=== PATIENT | male | born 1955 | race Caucasian/White ===

== ENCOUNTER 2016-07-20 22:43 | Inpatient (IN) | payer SELFPAY ==
[~2016-07-20] VITALS: Ht 188 cm; Wt 85.9 kg
--- NOTE | ~2016-07-20 | HP ---
PATIENT'S NAME: SHAYLA BONILLA [facility] AGE: 60 Y [address] ROOM: [place] [address] LOCATION: GPCU ADMIT DATE: 07/20/2016 History & Physical DISCHARGE DATE: FAMILY PHYSICIAN: PHYSICIAN, UNKNOWN ATTENDING PHYSICIAN: HASEEB CROUCH V DATE OF SERVICE: CHIEF COMPLAINT: Chest pain. HISTORY OF PRESENT ILLNESS: The patient is a 60-year-old male who denies any past medical history. He was convinced by his family to go to the ER in [place] today after approximately 18- 20 hours of constant substernal chest pressure. At its worst, this was a 9/10. In the ER in [place], the patient was found to have ST-abnormalities on the EKG. His troponin was 38. His CPK was 2100. He was started on nitro drip as well as heparin. The patient was communicated with Dr. Mao of Cardiology and sent to [facility] for further cardiac workup. I am seeing the patient immediately upon his arrival to the floor. He reports that at this point his chest pain is 3/10 while he is on 20 mcg of nitroglycerin a minute. He endorses some vague dyspnea, but denies any overt shortness of breath, nausea, vomiting, diarrhea, or palpitations. REVIEW OF SYSTEMS: All 10 systems have been reviewed and are negative aside from pertinent positives as mentioned above. PAST MEDICAL HISTORY: The patient denies. SOCIAL HISTORY: The patient has been a pack-a-day smoker for approximately 30 years now. He endorses 46 beers a week of alcohol use. He is employed in construction. FAMILY HISTORY: Significant for colon cancer and diabetes in his mother and lung cancer in his father. CURRENT MEDICATIONS: Nexium. PHYSICAL EXAMINATION: VITAL SIGNS: At this point, his heart rate is in the 80s, blood pressure PATIENT'S NAME: SHAYLA BONILLA [facility] AGE: 60 Y [address] ROOM: [place] [address] LOCATION: GPCU ADMIT DATE: 07/20/2016 History & Physical DISCHARGE DATE: FAMILY PHYSICIAN: PHYSICIAN, UNKNOWN ATTENDING PHYSICIAN: HASEEB CROUCH V 123/70, satting 96% on 2 L nasal cannula as well as on room air, he is afebrile, and respirations are 16. GENERAL: Appears as a well-developed, well-nourished, middle-aged male, in no acute distress. NEUROLOGIC: Exam is nonfocal. EYES: Exam shows pupils are equal and reactive to light. LYMPHATIC: Exam shows no cervical lymphadenopathy. ENDOCRINE: Exam shows no thyromegaly. LUNGS: Display diminished breath sounds in all nicole. HEART: Regular rate and rhythm without appreciable murmurs, gallops, or rubs. There is no jugular venous distention or lower extremity edema. GI: Abdomen is soft, nontender. : No costovertebral angle tenderness. VASCULAR: A 2+ pedal pulses. SKIN: Warm and dry. MUSCULOSKELETAL: Unremarkable. PSYCHIATRIC: Appropriate mood, cognition, and affect. LABORATORY DATA: Review of the EKG from [facility] done immediately prior to my arrival reveals normal sinus rhythm at 74 beats per minute. There are Q-waves in leads V1 through V4. There is approximately 2-mm ST-elevation in lead V2, a 4-mm ST-elevation in lead V3, and a 2-mm elevation in lead V4. There are T- wave inversions in leads V5 and V6. Flat T-waves in other leads. No labs are available from [facility] as of yet. ASSESSMENT AND PLAN: This is a 60-year-old male with ST-elevation myocardial infarction. I discussed the case with Dr. Mao; and at this point, the plan is to take him to the [facility]. We will continue him on nitroglycerin drip. We will hold off on heparin preprocedure. We will start him on intravenous fluids for hydration and give him some Valium on-call to the [facility]. Additional management will depend on results of the catheterization. Time dedicated to this patient encounter is 35 minutes. MD JARON SIFUENTES/timo /[id number] D: T: HISTORY & PHYSICAL
--- NOTE | ~2016-07-20 | DS ---
PATIENT'S NAME: SHAYLA BONILLA [facility] AGE: 60 Y [address] ROOM: [id number] [place], [place] [address] LOCATION: GPCU ADMIT DATE: 07/20/2016 Discharge Summary DISCHARGE DATE: 07/27/2016 FAMILY PHYSICIAN: Severo Miller MD ATTENDING PHYSICIAN: Meir Brown V PRINCIPAL DIAGNOSES: 1. Coronary artery disease presented with ST-segment elevation myocardial infarction, status post triple-vessel CABG. 2. Tobaccoism. 3. Gastroesophageal reflux disease. 4. Osteoarthritis. HOSPITAL COURSE: A 60-year-old gentleman with no significant past medical history, was brought to the emergency department of [facility] with chest pressure. EKG was done, and he was found to have ST elevation myocardial infarction. He was taken to the catheterization lab, which revealed multivessel disease and cardiothoracic consultation was obtained for a referral for CABG. Echocardiography and a preoperative evaluation was done. He was found to have left ventricle ejection fraction of 40% with mildly dilated left ventricle. He underwent triple-vessel CABG using SINGH, SVG, as well as NAKUL. He was in the ICU for 24 hours after the surgery. He was on amiodarone and insulin drip, which were weaned off. He briefly had atrial fibrillation postoperatively. He progressed well during the course of the hospitalization and was discharged. FOLLOWUP: He follow up with Dr. Liao in 2 weeks. Follow up with Dr. Latif in 2 weeks. DISCHARGE MEDICATIONS: 1. [place] 5/325 one tablet p.o. q.4 hours. 2. Esomeprazole 40 mg p.o. daily. 3. Amiodarone 200 mg p.o. 3 times daily. 4. Aspirin 81 p.o. daily. 5. Lipitor 40 mg p.o. every night. 6. Coreg 3.125 mg p.o. twice daily. 7. Plavix 75 mg p.o. every day. 8. Docusate 100 mg p.o. twice daily. 9. Vasotec 2.5 mg p.o. every day. 10. Lasix 40 mg p.o. every morning, dispensed 14 tablets. 11. KCl 20 mEq for hypokalemia, dispensed 14 tablets. HEMODYNAMICS ON DISCHARGE: Stable. LABORATORY WORK ON DISCHARGE: Hemoglobin of 10, white count of 8.3, platelets PATIENT'S NAME: SHAYLA BONILLA [facility] AGE: 60 Y [address] ROOM: [place] [address] LOCATION: GPCU ADMIT DATE: 07/20/2016 Discharge Summary DISCHARGE DATE: 07/27/2016 FAMILY PHYSICIAN: Severo Miller MD ATTENDING PHYSICIAN: Meir Brown V of 301. BMP was unremarkable with a GFR greater than 60. MD NIKKI RAMON/timo /[id number] d: 07/28/16 0509 t: 07/29/16 1503, DISCHARGE SUMMARY
--- NOTE | ~2016-07-20 | ECHO ---
Transthoracic Echocardiography Report (TTE) Demographics Patient Name SHAYLA BONILLA Date of Study 07/21/2016 Patient Number [id number] Visit Number [id number] Date of 1955 Room Number G6304 Gender Male Number Age 60 year(s) Referring Stephanie Worley V [employer] Aleah Salgado Physician [facility] Eb Sharma Physician Interpreting Daylin Calles [employer] Paraprofessional Physician Supervising Ordering Stephanie Giordano MD/MLP Physician MD Nurse Stress National Recruiter Conclusions Summary Ischemic cardiomyopathy. THe mid to distal inferoseptum, anteroseptum and distal anterior and apical church are akinetic. Mildly reduced LV systolic function. The estimated left ventricular ejection fraction is 40%. The left ventricle is mildly dilated . Diastolic assessment reveals Grade I diastolic dysfunction. Mildly dilated right ventricle. The left atrium is mildly dilated. No significant valvular abnormalities. Procedure Type of Study TTE procedure:2D Echocardiogram, M-Mode, Doppler , Color Doppler. Procedure Date Date: 07/21/2016 Start: 07:18 AM Study Location: Inpatient Portable Technical Quality: Adequate visualization Indications:Chest pain. Appropriate Use Criteria: 9 Patient Status: Routine HR: 76 bpm BP: 105/58 mmHg Allergies - No known allergies. M-Mode/2D Measurements LV Diastolic Dimension: 5.95 cm LV Systolic Dimension: 4.62 cm LV Septum Diastolic: 0.99 cm LV PW Diastolic: 0.99 cm AO Root Dimension: 3.2 cm Cardiac Output: 3.94 l/min AV Cusp Separation: 2.1 cm RV Diastolic Dimension: 3.39 cm LA volume: 73 ml LVOT: 2 cm RV Base: 3.71 cm LVOT VTI: 16.5 cm RV Mid: 4.05 cm LV Stroke volume: 51.81 ml TAPSE: 2.04 cm TDI-S': 20.2 cm/s Doppler Measurements AV Peak Velocity: 1.13 m/s MV Peak E-Wave: 0.37 m/s AV Peak Gradient: 5.11 mmHg MV Peak A-Wave: 0.48 m/s AV Mean Gradient: 3 mmHg MV E/A Ratio: 0.78 LVOT Peak Velocity: 1 m/s MV P1/2t: 127 msec PV Peak Velocity: 1 m/s E' Septal Velocity: 0.05 m/s PV Peak Gradient: 4 mmHg E' Lateral Velocity: 0.04 m/s A' Septal Velocity: 0.07 m/s A' Lateral Velocity: 0.13 m/s Findings Left Ventricle The left ventricle is mildly dilated . Diastolic assessment reveals Grade I diastolic dysfunction. Right Ventricle Mildly dilated right ventricle. Normal right ventricular function. Left Atrium The left atrium is mildly dilated. Right Atrium Normal right atrial size. IVC measures 1.35 cm with inspiratory collapse. Mitral Valve Normal mitral valve structure and function. Trivial mitral regurgitation by color Doppler. Aortic Valve The aortic valve is mildly sclerotic. Tricuspid Valve Normal tricuspid valve structure and function. Trivial tricuspid regurgitation by color Doppler. Pulmonic Valve Normal pulmonic valve structure and function. Trivial pulmonic valve regurgitation by color Doppler. Pericardial Effusion No evidence of pericardial effusion. Miscellaneous Visualized portions of the aortic root and ascending aorta appear normal in size. Pleural Effusion No evidence of pleural effusion. Signature dtt: RAE HARRIS dtd: 07/21/16 0718 Physician Self Edit
--- NOTE | ~2016-07-20 | CON ---
PATIENT'S NAME: SHAYLA BONILLA [facility] AGE: 60 Y [address] ROOM: [place] [address] LOCATION: GPCU ADMIT DATE: 07/20/2016 Consultation DISCHARGE DATE: FAMILY PHYSICIAN: Severo Miller MD ATTENDING PHYSICIAN: HASEEB CROUCH V DATE OF CONSULTATION: 07/21/2016 REFERRING PHYSICIAN: RAE HARRIS MD REASON FOR CONSULTATION: Severe coronary artery disease, STEMI. HISTORY OF PRESENT ILLNESS: The patient is a 60-year-old white male, transferred here per ground for a delayed presentation of a STEMI. Apparently, the patient had been golfing the day prior and experienced significant substernal chest pain that became progressively worse until it was 10/10 pain associated with shortness of breath, nausea, and vomiting. He did ignore the symptoms and later proceeded to work. He did take some Tums for his indigestion-type symptoms. He progressed with more pain in the epigastric area and then eventually started having numbness and tingling in his fingers. His coworkers prompted him to present to the emergency room for which he did finally do. He did have elevated troponins. Positive EKG. Dr. Latif accepted the patient in transfer. He underwent an echocardiogram with an EF at 40% and no significant valvular abnormalities. He was taken urgently to the catheterization lab due to continued chest pain and findings were for 50% left main with a thrombotic lesion, [id number] LAD at 100% with collaterals left and right to left. 80% second obtuse marginal at the proximal portion and a proximal RCA at 70. Also, a distal circumflex with 50% stenosis. Dr. Myers was asked to see the patient in consultation for surgical revascularization. The patient was transferred back up to the progressive care floor following the procedure on a heparin and nitroglycerin drip. Since that time, the patient's chest pain has subsided except for approximately 9 o'clock he developed a short burst of chest pain. The nitroglycerin was titrated and the pain resolved. PAST MEDICAL HISTORY: Illnesses: Osteoarthritis. SURGERIES: None. ALLERGIES: NO KNOWN DRUG ALLERGIES. SOCIAL HISTORY: [facility] AGE: 60 Y [address] 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 He is . He has grown children. He does consume alcohol on a daily basis, perhaps quite a bit and does smoke at least 1 pack of cigarettes per day. FAMILY HISTORY: Significant for his father having heart disease as well as his brothers. His mother had history with colon cancer. MEDICATIONS: 1. Heparin drip per protocol. 2. Nitroglycerin per protocol. 3. Coreg 3.125 mg b.i.d. 4. Lipitor 40 mg at h.s. 5. Enteric coated aspirin 81 mg. SYSTEM REVIEW: The patient's pertinent positives are listed as per HPI. Otherwise, his 10- point review of systems were negative. PHYSICAL EXAMINATION: VITAL SIGNS: Blood pressure 105/58, pulse is 98, respirations 15, temperature 98.2, O2 saturation is 97%, weight is 85.2 kg, height is 187.9 cm. GENERAL: The patient is very pleasant. He is in no acute distress at this time. His family is in the room to hear the details of coronary artery bypass grafting. HEENT: Normocephalic with EOMIs intact. NECK: Trachea midline with no palpable lymphadenopathy or thyromegaly. CARDIOVASCULAR: Regular rate and rhythm. Tachy at times. ABDOMEN: Soft, nontender by 4 quadrants. Positive bowel sounds throughout. EXTREMITIES: No overt varicosities or edema. MUSCULOSKELETAL: Good range of motion to bilateral upper and lower extremities. NEUROLOGIC: Alert and oriented. SKIN: [place]. LAB AND TEST RESULTS: CBC: WBC is 8.1, hemoglobin 12.5, platelets 203. BMP: Sodium 141, potassium 3.8, BUN 16, creatinine 1.0. Lipid profile shows cholesterol of 157, triglycerides 118, HDL 52, LDL 82. Latest CPK is 1506, CK-MB is 113.8, and troponin I is 42.7. RECOMMENDATIONS AND PLAN: Dr. Myers did review the cardiac catheterization studies. At this time, we will plan for pass consisting of 3 vessels. Risks and benefits of the procedure were discussed. Discussion of the risks include, but were not PATIENT'S NAME: SHAYLA BONILLA [facility] AGE: 60 Y [address] ROOM: [facility] [place], [place] [address] [facility] AD[facility] DATE: 07/20/2016 Consultation DISCHARGE DATE: FAMILY PHYSICIAN: Severo Miller MD ATTENDING PHYSICIAN: HASEEB CROUCH V limited to, bleeding requiring transfusion, return to the operative suite, myocardial infarction, cerebrovascular accident, renal and/or pulmonary failure. Also discussed were arrhythmias and infection as well as operative and postoperative mortality. The patient does consent to the procedure. We will plan for first case on July 22, sooner if conditions warrant. We would like to thank Dr. Harris for allowing us to participate in the care of this very pleasant gentleman. FRIDA LENZ APRN FOR SHAYLA MYERS, DLQ/modl /[id number] d: 07/23/16 0159 t: 08/02/16 0803, CONSULTATION REPORT
--- NOTE | ~2016-07-20 | ENPV ---
Vascular Lower Extremity Vein Mapping Procedure Demographics Patient Name SHAYLA BONILLA Date of Study 07/21/2016 Patient Number [id number] Gender Male Date of 1955 Age 60 Visit Number [id number] Height 72 Accession Number [id number] Weight 188.28 Referring Daylin Gary MD Physician Physician Physician Ordering Daylin Scheduling Representative Physician Marli POP Vat Cleaner [place] Gray [facility] Eb Sharma Conclusions Summary No evidence of superficial thrombophlebitis in the lower extremities bilaterally . There is a branch off the left greater saphenous vein in the proximal calf. The right greater saphenous vein appears more suitable for harvest. Procedure Type of Study: Veins:Lower Extremity Vein Mapping, Vein Map Bilat DUTCH. Indications for Study:Pre-op CABG. Appropriate Use Criteria:8 Allergies - No known allergies. Patient Status:Routine. Study Location:Inpatient Portable. Technical Quality:Adequate visualization. Risk Factors - The patient has a current/recent (within 1 year) tobacco history. Velocities are measured in cm/s ; Diameters are measured in cm + ++--------++--------+ !Superficial - Great Saphenous Vein !!Right !!Left ! + ++--------++--------+ !Location !!Diameter!!Diameter! + ++--------++--------+ !Sapheno Femoral Junction !!0.45 !!0.46 ! + ++--------++--------+ !GSV High Thigh !!0.41 !!0.47 ! + ++--------++--------+ !GSV Mid Thigh !!0.33 !!0.26 ! + ++--------++--------+ !GSV Low Thigh !!0.37 !!0.45 ! + ++--------++--------+ !GSV Knee !!0.43 !!0.32 ! + ++--------++--------+ !GSV High Calf !!0.34 !!0.23 ! + ++--------++--------+ !GSV Mid Calf !!0.34 !!0.21 ! + ++--------++--------+ !GSV Low Calf !!0.37 !!0.25 ! + ++--------++--------+ Signature dtt: DELROY MCBRIDE dtsabina: 07/21/16 0808 Physician Self Edpranav
--- NOTE | ~2016-07-20 | OR ---
PATIENT'S NAME: PATRICE SINGLETON [facility] AGE: 60 Y [address] ROOM: [place] [address] [facility] AD[facility] DATE: 07/20/2016 OR/Procedure Report DISCHARGE DATE: 07/27/2016 FAMILY PHYSICIAN: Severo Miller MD ATTENDING PHYSICIAN: Meir Brown V SURGEON: Patrice Liao DO PROPOSAL CONSULTANT: DATE OF PROCEDURE: 07/22/2016 PREOPERATIVE DIAGNOSES: 1. ST-segment myocardial infarction, status post code ST-elevation myocardial infarction cath. 2. Multivessel coronary artery disease. 3. Depressed ejection fraction of 40%. 4. Chronic tobacco abuse. POSTOPERATIVE DIAGNOSES: 1. ST-segment myocardial infarction, status post code ST-elevation myocardial infarction cath. 2. Multivessel coronary artery disease. 3. Depressed ejection fraction of 40%. 4. Chronic tobacco abuse. PROCEDURE PERFORMED: Coronary artery bypass grafting x3 with left internal mammary artery to the left anterior descending, reverse saphenous vein graft to the obtuse marginal, and right internal mammary artery to the right coronary artery. BRIEF HISTORY: Mr. Singleton is a 60-year-old white male with the above-noted diagnoses. DESCRIPTION OF PROCEDURE: He has been brought to the operative suite today after informed consent was obtained for his revascularization. He was sterilely prepped and draped in the usual fashion for sternotomy with lower extremity vein harvest. A sternal incision was made, and the sternum was divided in the midline. Concurrently, the saphenous vein was harvested endoscopically. We turned our attention to the left internal mammary. A mammary retractor had been placed. The mammary artery was identified and then harvested utilizing the Harmonic Scalpel. We left it intact, switched our mammary retractor to the right jocy-sternum, and identified the right internal mammary artery. Again, it was identified and then harvested utilizing the Harmonic Scalpel. The patient was now fully heparinized. The right internal mammary artery was divided and prepared for bypass. The internal mammary retractor was removed. The left jocy-sternum was retracted, and the left internal mammary artery was divided. The sternal retractor was now placed, PATIENT'S NAME: PATRICE SINGLETON [facility] AGE: 60 Y [address] ROOM: [place] [address] LOCATION: GPCU ADMIT DATE: 07/20/2016 OR/Procedure Report DISCHARGE DATE: 07/27/2016 FAMILY PHYSICIAN: Severo Miller MD ATTENDING PHYSICIAN: Meir Brown V the pericardium was opened, and a pericardial well was created. Cannulation sutures now placed in the ascending aorta and right atrium for bypass and cardioplegia cannulas. The patient was now cannulated and connected to the bypass pump without difficulty. The vein was then prepared for bypass. Cardiopulmonary bypass was initiated, and a crossclamp was applied. Antegrade and retrograde cardioplegia was given along with topical cold saline for cardiac arrest, and the heart arrested without difficulty. We identified the right coronary artery approximately 1 cm above the bifurcation into the posterolateral and posterior descending branches and anastomosed our right internal mammary artery to this in an end-to-side fashion utilizing 7-0 Prolene. With this completed, the bulldog was removed from the internal mammary, showing good distal flow into the distal system and an intact anastomosis. The bulldog was now replaced, and a dose of cardioplegia was given. The obtuse marginal was now identified and a vein graft anastomosed to it in an end-to-side fashion with 7-0 Prolene. Another 500 mL of vein graft and retrograde cardioplegia was given, and then the left internal mammary was anastomosed to the mid LAD again in an end-to-side fashion with 7-0 Prolene. We now removed the bulldogs from each of the internal mammaries and removed the crossclamp. Partial occlusion clamp was applied. The vein graft was anastomosed to the ascending aorta with 4-0 punch and 6-0 Prolene. During this time period, warm blood was given in a retrograde fashion. We now removed the partial occlusion clamp, de-aired the vein, and removed the bulldog. Distal sites were hemostatic. Proximal site was hemostatic. Warm blood was now discontinued. The retrograde cannula was removed. Ventilations were initiated, and 2 atrial and 1 ventricular temporary pacemaking wires were placed. We weaned from cardiopulmonary bypass without difficulty and removed the venous cannula. Appropriate volume was returned to the patient, and ascending aortic cannula was removed. Protamine was now given. Copious amounts of antibiotic-infused saline was used to irrigate the sternum and mediastinum. Four chest tubes were placed; one in each pleural space, one in the posterior pericardial space, and one in the anterior mediastinal space. Sternum was now approximated with sternal cable system. All sponge, instrument, and needle counts were correct. Soft tissues were closed in a layered fashion, and the patient was transferred to the intensive care unit in stable condition. DO FABIANA BATISTA/timo /[id number] d: 08/02/16 1855 t: 08/03/16 0743, OPERATIVE SUMMARY
--- NOTE | ~2016-07-20 | CON ---
PATIENT'S NAME: SHAYLA SINGLETON [facility] AGE: 60 Y [address] ROOM: [address]6304 [place], [place] [address] LOCATION: GPCU ADMIT DATE: 07/20/2016 Consultation DISCHARGE DATE: FAMILY PHYSICIAN: PHYSICIAN, UNKNOWN ATTENDING PHYSICIAN: HASEEB CROUCH V DATE OF CONSULTATION: 07/21/2016 REFERRING PHYSICIAN: RAE HARRIS MD REASON FOR CONSULTATION: Chest pain with anterior infarct. HISTORY OF PRESENTING ILLNESS: The patient is a very pleasant, 60-year-old male, who has prior history of osteoarthritis and acid reflux. He is on omeprazole and NSAIDs for pain management at home. He does not have any prior cardiac history. No history of CABG, stent, or valve replacement. He does not have medical insurance and really does not follow with a doctor for that reason. He smokes about 1 pack per day for the past 30 years. He started complaining of chest pain yesterday while he was playing golf at about 8:30. He said at the most intense it was 10/10 on pain scale. He thought it was just his acid reflux. He really did not do much about it. It was persistent. It was quite severe and persisted all night. This morning, he went to work, but he was not feeling well. At 12:45 p.m. today, he came home. He continued to have the chest pain that was bothering him; did not do much about it. He started having nausea, vomiting, and shortness of breath and finally decided to go to the emergency room in [place]. When he went there, his initial cardiac enzymes were quite elevated. His CPK was 2000, CK-MB 269, troponin of 35, with Q-waves in the anterior leads. He continued to have chest pain about 2 to 3 on pain scale, and he was finally transferred to our facility. I asked them to give him aspirin, Lipitor, nitroglycerin drip and heparin drip, and morphine in transfer en route. The plan was to cath him urgently if he has continued chest pain, or to optimize medications and cath him in the morning if he is symptom-free without any arrhythmias and hemodynamically stable. Upon arrival, the patient still has chest pain about 4 on pain scale. It radiates to his back. He seems to be in mild distress from that. He has not had any symptoms like this before. He is a lemus and quite active. No fever, chills, stroke-like symptoms, palpitations, presyncope, syncope, CHF symptoms of PND or orthopnea, or lower extremity edema. REVIEW OF SYSTEMS: Ten-point review of systems discussed with the patient, pertinent positives and negatives mentioned in the history of presenting illness. PATIENT'S NAME: SHAYLA SINGLETON [facility] AGE: 60 Y [address] ROOM: [address] [place], [place] [address] LOCATION: GPCU ADMIT DATE: 07/20/2016 Consultation DISCHARGE DATE: FAMILY PHYSICIAN: PHYSICIAN, UNKNOWN ATTENDING PHYSICIAN: HASEEB CROUCH V PAST MEDICAL HISTORY: Acid reflux and osteoarthritis. PAST SURGICAL HISTORY: Knee surgery bilaterally. FAMILY HISTORY: No premature coronary artery disease. Several uncles with MIs in their 60s. SOCIAL HISTORY: The patient smokes 1 pack per day for 30 days. He is a lemus and quite active. He drinks about 2 beers twice a week. ALLERGIES: NO KNOWN DRUG ALLERGIES. MEDICATIONS: 1. Omeprazole 40 mg daily. 2. Ibuprofen 800 mg every morning. PHYSICAL EXAMINATION: VITAL SIGNS: His blood pressure is 118/69, 97.9, oxygen saturations 98% on 2 L, and pulse is 68. Weight is 85 kg. GENERAL: The patient is alert and oriented. Mild distress. NECK: Supple. EYES: Clear. No xanthelasmas. LUNGS: Clear to auscultation bilaterally. HEART: S1, S2. Regular rate and rhythm. No murmurs, gallops, or rubs. CHEST: Symmetric. ABDOMEN: Soft. Bowel sounds positive. EXTREMITIES: No significant lower extremity edema. Radial pulse is palpable. NEURO: Grossly intact. Able to move all extremities against gravity. SKIN: Warm and dry. LABORATORY DATA: His labs basically show sodium is 138, potassium 3.9, glucose 127, BUN 17, creatinine 1.1, AST 296, ALT 67, alkaline phosphatase 75. WBC 10.8, H and H of 13.9 and 40.8, and platelets are 253. CPK at the outside hospital was 2135 and here it is 1951. Troponin was 35 and here it is 52. CK-MB was 161 here and it was 269 at the outside facility. INR is 0.95. EKG: Sinus rhythm with possible inferior infarct and anterior ST elevation with Q-waves, T-wave inversions in the anterolateral leads. IMPRESSION AND PLAN: 1. Anterior ST-elevation myocardial infarction, late presentation, symptom PATIENT'S NAME: SHAYLA SINGLETON [facility] AGE: 60 Y [address] ROOM: [place] [address] LOCATION: GPCU ADMIT DATE: 07/20/2016 Consultation DISCHARGE DATE: FAMILY PHYSICIAN: PHYSICIAN, UNKNOWN ATTENDING PHYSICIAN: HASEEB CROUCH V onset about 30 hours ago. He continues to have chest pain and his cardiac enzymes are significantly elevated. He is on 20 mcg of nitroglycerin drip. At this point, I think we need to proceed with cardiac catheterization and possible intervention given that he continues to have persistent chest pain. He is hemodynamically stable. 2. Tobacco abuse. Counseled against tobacco use. 3. Acid reflux. Continue omeprazole. Further plan after cardiac catheterization is done. Risks and benefits of cardiac catheterization discussed with the patient and family and they are agreeable to proceed with the plan. Risks include risk of bleeding, bruising, infection 1 in 100 cases, risk of heart attack, , MD, stroke, losing a limb, ending up on dialysis, contrast allergy of less than 1 in a 1000 cases. At this time, benefits are greater than the risks. Thank you very much for allowing us to participate in the care of Mr. Singleton. We will continue to follow the patient. RAE HARRIS MD AT/modl /[id number] d: 07/21/16 0531 t: 07/22/16 1407, CONSULTATION REPORT
--- NOTE | ~2016-07-20 | CATH ---
Cardiac Diagnostic Report Demographics Patient Name IRENE Jefferson Gender Male Date of 1955 Age 60 year(s) Patient Number [id number] Date of Study 07/21/2016 Visit Number [id number] Room Number G6[address] [place] [id number] Ht 182.88 cm Wt 85.4 kg Referring Stephanie Worley Primary Physician Physician Giuliana POP Performing [place] Secondary Physician Physician Marli POP Diagnostic [facility] Assisting Physician Physician Marli POP Interventional Physician Pyrotechnic Mixer Physician Findings and Conclusions Diagnostic Findings and Conclusion Patient presented with STEMI, late presentation, > 24 hours of symptom onset, brought urgently to lab intern, due to persistent chest pain and worsening ecg changes with deep TWI in the anterolateral leads. 1. Multivessel CAD. 2. LM mid to distal 50% thrombotic lesion, appears to be an ulcerated plaque. 3. Mid to distal LAD 100% lesion with collaterals from left and right to left collaterals. 4. Large OM2 with 80% tubular lesion in the proximal portion. 5. Prox RCA 70% focal lesion, large dominant vessel. Diagnostic Recommendations Refer for CABG. Echo, carotids, vein mapping and PFT's in am. Continue medical treatment. Patient was CP free at the end of the procedure. Procedure Description The patient was brought to the diagnostic cardiac catheterization-EP laboratory in the fasting, non-sedated state. Informed consent was obtained in the written and verbal form after the risks and benefits were explained. The patient had no further questions and agreed to proceed. The planned puncture-incision site(s) were shaved and prepped with ChloraPrep and draped in the usual sterile manner. Conscious sedation, supplemental oxygen, and pain control medications were delivered by a registered nurse under physician guidance. Surface ECG rhythm, blood pressure measurement, and pulse oximetry were monitored throughout the procedure. Arterial access. The access site was infiltrated with lidocaine. The vessel was entered with the Seldinger technique. A sheath was advanced into the vessel and used for catheter placement. Selective left coronary angiography. A catheter was advanced into the left coronary vessel ostium under Fluoroscopic guidance. Contrast was injected by hand. Images were obtained in multiple projections. Selective right coronary angiography. A catheter was advanced into the right coronary vessel ostium under fluoroscopic guidance. Contrast was injected by hand. Images were obtained in multiple projections. Left heart catheterization. A catheter was advanced across the aortic valve to the left ventricle under fluoroscopic guidance. Resting hemodynamics were obtained. Arterial artery hemostasis was achieved. The patient was transferred to a regular nursing floor via cart accompanied by a nurse. The patient left the laboratory in stable condition. Diagnostic Cath Status: Emergency Procedure Procedure Type Diagnostic procedure:Angiography:, Coronary Angios /[facility] Indications: Chest pain, Abnormal ECG and Abnormal enzymes. The procedure was explained in detail to the patient. Risks, complications and alternative treatments were reviewed. Written consent was obtained. Medications Reviewed with Patient prior to Procedure. Angiographic Findings Dominance: Right Cardiac Arteries and Lesion Findings LMCA: Lesion on LMCA: Mid subsection.50% stenosis . Comments:Thrombotic lesion LAD: Lesion on Dist LAD: 100% stenosis . Comments:Left and right collaterals. Lesion on Prox LAD: 30% stenosis . LCx: Lesion on Dist CX: 50% stenosis . Lesion on 1st Ob Lisy% stenosis . RCA: PL and PDA normal. Lesion on Prox RCA: 70% stenosis . Coronary Tree Procedure Data Procedure Date Date: 07/21/2016Start: 12:52 AMEnd: 01:19 AM Entry Locations - Retrograde Percutaneous access was performed through the Right Radial artery (Primary location). A 6 Fr sheath was inserted. Hemostasis was successfully obtained using Mechanical Compression. Closure Comments: R band with 14 cc air deployed by ALMITA Mcleod.. Procedure Medications Order and Administration + + +-------+ + !Time !Medication !Dosage !Route ! + + +-------+ + !07/21/2016 12:55 AM !Versed !1 mg !I.V. ! + + +-------+ + !07/21/2016 12:55 AM !Fentanyl !50 mcg !I.V. ! + + +-------+ + !07/21/2016 12:56 AM !Radial Verapamil !2.5 mg !I.A. ! + + +-------+ + !07/21/2016 01:10 AM !Angiomax (Bivalirudin) (ACC_5) !65 mg !I.V. bolus ! + + +-------+ + Devices Used - A6 Fr. BS JR 4 Diag. Catheterwas used for:Right coronary angiography. - A6 Fr. EBU 3.5 Guide Catheterwas used for:Left coronary angiography. Contrast Material - Isovue 34784 ml Fluoroscopy Time: Diagnostic: 4:24 minutes. Total: 4:24 minutes. Fluoroscopy Dose: Diagnostic: 723 mGy. Total: 723 mGy. Estimated Blood Loss: 10 ml. Additional [facility] PCI Information PCI Indication:PCI for STEMI (Unstable, >12 hrs from Sx onset). Medical History Performed Procedures and Imaging Results - No [facility] stress or imaging studies were performed. Allergies - No known allergies. Risk Factors The patient risk factors include:family history of premature CAD and Current/Recent(w/in 1 year) tobacco use. Admission Data Admission Date: 07/20/2016 Admission Time: 10:43 PM Admit Source: Emergency department Insurance Payors: None. Admission Medications + +------+-----+---------+---------+ + + !Medication !Dosage!Times!Last !Last !Administered !Comments ! ! ! !Per !Delivery !Delivery ! ! ! ! ! !Day !Date !Time ! ! ! + +------+-----+---------+---------+ + + !Unfractionated ! ! ! ! !Yes ! ! !Heparin (any) ! ! ! ! ! ! ! + +------+-----+---------+---------+ + + !Nitrates (iv or! ! ! ! !Yes ! ! !buccal) ! ! ! ! ! ! ! + +------+-----+---------+---------+ + + Clinical Evaluation Leading to Procedure - The patient's CAD presentation was assessed as: STEMI.The symptom onset was first noted on 07/19/2016 07:30 PM(time was estimated). - The patient's anginal syndrome during the past two weeks was assessed as: Class IV according to the [place] Cardiovascular Society Classification System (CCS). Snapshots Hemodynamics Condition: Rest O2 Consumption: Estimated: 242.18Heart Rate: 66 bpm Pressures (mmHg) +-----+ + !Site !Pressure ! +-----+ + !LV !116/2 ,8 ! +-----+ + !LV !118/1 ,9 ! +-----+ + !AO !115/62 (83) ! +-----+ + !LV !117/1 ,9 ! +-----+ + !AO !108/62 (82) ! +-----+ + !AO !102/64 (79) ! +-----+ + Valve Gradients and Areas + +---------+---------+---------+ +---------+ + !Valve !Peak !Mean !Area !Index !Flow !Source ! + +---------+---------+---------+ +---------+ + !Aortic !2 !0 ! ! ! ! ! + +---------+---------+---------+ +---------+ + !Aortic !2 !0 ! ! ! ! ! + +---------+---------+---------+ +---------+ + Shunts Oxygen Values O2 Capacity 189.04 O2 Consumption 242.18 Signatures dtt: MARLI HARRIS dtd: 07/21/16 0052 Physician Self Edit
--- NOTE | ~2016-07-20 | PUL ---
PATIENT'S NAME: SHAYLA BONILLA [facility] AGE: 60 Y [address] ROOM: [address] [place], [place] [address] [facility] ADMIT DATE: 07/20/2016 Pulmonary DISCHARGE DATE: FAMILY PHYSICIAN: Severo Miller MD ATTENDING PHYSICIAN: HASEEB CROUCH V NAME OF PROCEDURE: Bedside Spirometry DATE OF PROCEDURE: July 21, 2016 TECH: Lucia, WINDOW TRIMMER APPRENTICE REASON FOR EXAM: Pre-surgical evaluation RESULTS: FVC was 3.53 liters which is 64% of predicted and low, FEV1 was 2.41 liters which is 57% of predicted and low, and FEV1/FVC was 68% and normal for patient's demographics. After bronchodilator administration FVC increased to 3.66 liters which is a 4% increase and FEV1 increased to 2.57 liters which is a 7% increase. FEV1/FVC was 78.2%. PHYSICIAN INTERPRETATION: The patient has no airflow limitation as per ATS/ERS criteria and no significant bronchodilator response. There is suggestion of restrictive lung disease but lung volumes are needed to confirm that. LETITIA LOPEZ MD RFSam/benito /[id number] dtt: 07/26/16 1617 , LETITIA LOPEZ dtd: 07/26/16 1522
[2016-07-20] MEDS ORDERED: IBUPROFEN800 MG PO (22:55)
[2016-07-20] MEDS ORDERED: NEXIUM40 MG PO (22:55)
--- NOTE | 2016-07-21 00:04 | NUR ---
Patient arrived to PCU from [facility] at 2245 for chest pain. Patient is chest pain free at this time. Able to walk from stretcher to bed with standby assistance. Vital signs: 97.9 temp, 118/69 - 87, HR 69 bpm, 98% on 2L NC, 16 resp. Patients lungs are clear. SR with PVCs. Nitro at 20mcg/min. Dr. Latif plans to cath patient in AM. Patient is A/Ox3. Assessment is negative outside of cardiac. IV to R) hand and L) forearm.
[2016-07-21 04:11] LABS: BASOPHIL % 0.5 %; EOSINOPHIL # 0.3 K/uL (0.0-0.5); EOSINOPHIL % 3.6 %; HEMATOCRIT 37.8 % (37.0-53.0); HEMOGLOBIN 12.5 g/dL (12.0-17.0); IMMATURE GRANULOCYTE % 0.4 %; LYMPHOCYTE # 1.4 K/uL (0.8-4.0); MCH 30.4 pg (27.0-34.0); MCHC 33.1 gm/dL (32.0-36.5); MONOCYTE # 0.8 K/uL (0.0-1.0); MONOCYTE % 10.2 %; MPV 9.4 fl (9.4-12.4); NEUTROPHIL # (ANC) 5.6 K/uL (1.4-9.0); NEUTROPHIL % 68.3 %; NRBC % 0 /100WBC (0-0.00); PLATELET COUNT 203 K/uL (150-450); RBC 4.11 M/uL (4.00-6.00); RDW-CV 13.7 % (11.9-14.6); WBC 8.1 K/uL (4.0-11.0)
[2016-07-21 04:41] LABS: ANION GAP 11.8 (10.0-19.0); BLOOD UREA NITROGEN 16 mg/dL (6-24); CALCIUM 8.4 mg/dL (8.5-10.5); CHLORIDE 107 mMol/L (96-110); CO2 26 mMol/L (22-32); ESTIMATED GFR (MDRD EQUATION) > 60; POTASSIUM 3.8 mMol/L (3.7-5.1); SODIUM 141 mMol/L (135-145)
[2016-07-21 04:56] LABS: CPK 1506 IU/L (35-332)
--- NOTE | 2016-07-21 11:21 | NUR ---
Introduced self and CM role to Patrice. He tells me he lives in [place] with his S/O, Aarti, his plan is to return home as soon as doctors feel he is ready to do so. Patrice was listed as self pay on my sheet. I did confirm that he was a true self pay and that he didn't have any insurance coverage. I let him know about the financial assistance application that he could fill out once he dismissed to help cover his costs here at [facility]. He was fine with this. I asked if he had any issues paying for his medications prior to coming in. He tells me that he was only taking 2 medications at home so he wasn't having any issues covering the costs of them. He denies any needs for HHC/DME upon dismissal. No other questions, needs or concerns. CM to continue to follow and assist. After nursing huddle, I was informed that he did get a CABG consult and will most likely have that done tomorrow if the schedule permits.
[2016-07-21 15:15] LABS: BICARBONATE 26.9 mmol/L (18.0-23.0); PCO2 37 mmHg (35-45); PO2 76 mmHg (80-90)
--- NOTE | 2016-07-21 17:47 | NUR ---
Pt A/Ox3. VSS on RA. Pt complained of chest pain 3/10 at 0910, nitro increased and pt reported no pain at 0945. Tylenol given x1 for headache at 0850 with relief noted. No additional complaints of pain throughout the day. Pt to stay in bed, but can get up to chair or bedside commode. Pt voids per urinal, no BM. Pt NPO after midnight. Nitro at 15 mcg/min, heparin running at 1400 units/ hr in L FA IV. R hand IV SL. Next PTT HP at 2225.
[2016-07-21 18:00] LABS: BILIRUBIN URINE NEGATIVE (NEGATIVE); BLOOD URINE NEGATIVE /UL (NEGATIVE); GLUCOSE URINE NEGATIVE (NEGATIVE); KETONE URINE NEGATIVE (NEGATIVE); LEUKOCYTES URINE NEGATIVE /UL (NEGATIVE); NITRITE URINE NEGATIVE (NEGATIVE); PROTEIN URINE NEGATIVE (NEGATIVE); UROBILINOGEN URINE NORMAL (NORMAL)
[2016-07-21 18:01] LABS: COLOR URINE YELLOW (YELLOW); TURBIDITY URINE CLEAR (CLEAR)
--- NOTE | 2016-07-22 04:08 | NUR ---
Significant Event: Patient A/Ox3. VSS on RA. Patient received CABG shower and wipes at HS, will do second round of wipes at 0430. Tylenol x1 for headache. Patient is up SBA but with limited activity per Dr. Latif's orders. MRSA results negative. UA WNL. Patient has had no chest pain this shift. Nitro gtt running at 15mcg. Heparin d/c'd at 0400. Bicarb at 50ml/hr started at 0000. Risks and benefits completed, permits signed. Follow up: Patient is first case CABG this AM.
[2016-07-22 04:31] LABS: ANION GAP 9.7 (10.0-19.0); BLOOD UREA NITROGEN 14 mg/dL (6-24); CALCIUM 8.4 mg/dL (8.5-10.5); CHLORIDE 110 mMol/L (96-110); CO2 24 mMol/L (22-32); CREATININE 0.9 mg/dL (0.6-1.3); ESTIMATED GFR (MDRD EQUATION) > 60; PHOSPHORUS 2.6 mg/dL (2.5-4.9); POTASSIUM 3.7 mMol/L (3.7-5.1); SODIUM 140 mMol/L (135-145)
[2016-07-22 11:21] LABS: MCH 31.2 pg (27.0-34.0); MCHC 32.8 gm/dL (32.0-36.5); MCV 95.2 fl (83.0-98.0); MPV 9.3 fl (9.4-12.4); PLATELET COUNT 171 K/uL (150-450); RBC 3.11 M/uL (4.00-6.00)
[2016-07-22 11:29] LABS: PROTIME 11.6 SECONDS (9.8-11.4)
[2016-07-22 11:35] LABS: HEMATOCRIT 29.6 % (37.0-53.0); HEMOGLOBIN 9.7 g/dL (12.0-17.0); WBC 19.7 K/uL (4.0-11.0)
[2016-07-22 11:36] LABS: PTT 25 SECONDS (25-32)
[2016-07-22 12:21] LABS: PCO2 50 mmHg (35-45); PO2 135 mmHg (80-90)
[2016-07-22 12:34] LABS: ANION GAP 9.1 (10.0-19.0); BLOOD UREA NITROGEN 12 mg/dL (6-24); CHLORIDE 111 mMol/L (96-110); CO2 25 mMol/L (22-32); CREATININE 0.9 mg/dL (0.6-1.3); ESTIMATED GFR (MDRD EQUATION) > 60; POTASSIUM 4.1 mMol/L (3.7-5.1); SODIUM 141 mMol/L (135-145)
--- NOTE | 2016-07-22 13:25 | NUR ---
CONSULT RECEIVED S/P CABG. WILL PROVIDE DIET ED APPROPRIATE PRIOR TO DC.
[2016-07-22 13:40] LABS: ALPHA ANGLE 77 degrees; ALPHA ANGLE 78 degrees (70-81); CLOT FORMATION TIME 65 seconds; CLOTTING TIME 161 seconds; MAXIMUM CLOT FIRMNESS 64 mm; MAXIMUM LYSIS 5 %
[2016-07-22 13:41] LABS: CLOTTING TIME 62 seconds (43-82); MAXIMUM CLOT FIRMNESS 57 mm (51-72)
[2016-07-22 13:48] LABS: PCO2 49 mmHg (35-45); PO2 349 mmHg (80-90)
[2016-07-22 13:49] LABS: POTASSIUM 3.8 mEq/L (3.7-5.1); SODIUM 139 mEq/L (135-145)
[2016-07-22 13:50] LABS: BICARBONATE 27.8 mmol/L (18.0-23.0); PCO2 47 mmHg (35-45); PO2 255 mmHg (80-90); POTASSIUM 4.9 mEq/L (3.7-5.1); SODIUM 138 mEq/L (135-145)
[2016-07-22 13:51] LABS: BICARBONATE 25.8 mmol/L (18.0-23.0); PCO2 56 mmHg (35-45); PO2 229 mmHg (80-90)
[2016-07-22 13:52] LABS: BICARBONATE 26.7 mmol/L (18.0-23.0); PCO2 53 mmHg (35-45); PO2 265 mmHg (80-90)
[2016-07-22 13:52] LABS: POTASSIUM 4.5 mEq/L (3.7-5.1); SODIUM 138 mEq/L (135-145)
[2016-07-22 13:53] LABS: POTASSIUM 4.1 mEq/L (3.7-5.1); SODIUM 140 mEq/L (135-145)
--- NOTE | 2016-07-22 17:21 | NUR ---
D: CABG I: ALB/EZPAP R: PT WAS EXTUBATED @ 12:50 TO A 4 LPM NC, PT IS CURRENTLY ON 6 LPM NC, PT IS HAVING TROUBLE IN DEALING WITH PAIN, RAN EZPAP TX @ 8 LPM TO GET 10 CWP, PT COULD ONLY GET 10 CWP WITH THAT LITER FLOW, PT WAS ABLE TO GET 500-750 ON IS, BS CLEAR IN UPPER LOBES & C&D IN BASES, NO OTHER SIGNIFICANT CHANGES T/O DAY P: CONT.8
--- NOTE | 2016-07-22 17:40 | NUR ---
Significant Event:ADMITTED TO ICU POST 3 VESSELL CABG AT 1147, ARRIVED ON DOPAMINE, BICARB, LEVOPHED, CARRIER, AMIODARONE. EXTUBATED AT 1245. PAIN ISSUE'S. GAVE 4 MG MORPHINE WITH NO RELIEF OF PAIN. CALL TO DR. MYERS AND ADDED A 1 TIME DOSE OF TORADOL AND DILAUDID RETAIL FIELD SUPERVISOR. PATIENT CONTINUES TO HAVE BURST OF PAIN AND AGITATION FOLLOWED BY RESTFUL PERIODS. DR. MERAZ GAVE 1 TIME DOSE OF ATIVAN 0.5MG IV D/T CONFLICTING HISTORIES OF ETOH USE AND POSSIBLE DT'S. WEANING DOPAMINE AND LEVOPHED Follow up:CONTINUE TO MONITOR
[2016-07-23 04:31] LABS: BICARBONATE 27.9 mmol/L (18.0-23.0); PCO2 44 mmHg (35-45)
[2016-07-23 04:34] LABS: PO2 73 mmHg (80-90)
--- NOTE | 2016-07-23 04:39 | NUR ---
SIGNIFCIANT EVENT: PT HAVING PAIN CONTROL ISSUES AT BEGINNING OF SHIFT, AFTER TORADOL AND INCREASE IN HYDROMORPHONE SECURITY OPERATIONS MANAGER WITH NORCO PO PAIN WAS CONTROLLED. LEVO AND EPI OFF. PT STANDING WELL. LASIX GIVEN FOR DECREASED UOP, BLADDER SPASMED ONCE FOLLOW UP:
[2016-07-23 04:45] LABS: ANION GAP 11.8 (10.0-19.0); BLOOD UREA NITROGEN 16 mg/dL (6-24); CALCIUM 8.3 mg/dL (8.5-10.5); CHLORIDE 107 mMol/L (96-110); CO2 27 mMol/L (22-32); CREATININE 1.1 mg/dL (0.6-1.3); ESTIMATED GFR (MDRD EQUATION) > 60; POTASSIUM 3.8 mMol/L (3.7-5.1); SODIUM 142 mMol/L (135-145)
[2016-07-23 04:48] LABS: HEMOGLOBIN 11.7 g/dL (12.0-17.0); MCH 30.7 pg (27.0-34.0); MCHC 32.4 gm/dL (32.0-36.5); MCV 94.8 fl (83.0-98.0); MPV 10.1 fl (9.4-12.4); RBC 3.81 M/uL (4.00-6.00); RDW-CV 14.2 % (11.9-14.6)
[2016-07-23 04:50] LABS: HEMATOCRIT 36.1 % (37.0-53.0); WBC 16.4 K/uL (4.0-11.0)
--- NOTE | 2016-07-23 16:42 | NUR ---
Significant Event:Patient A&O x 3, up in chair all of shift, ambulated in light and stood at bedside, was in/out Afib this AM and received 150mg Amiodarone bolus, has remains out of Afib this afternoon, Dr Liao aware, pt coughing up lots of phlegm - started on Mucinex, remains on Dilaudid RESIDENTIAL DOOR INSTALLER and [place] given Q4H, on insulin gtt with accuchecks Q2H, minimal appetite - ate some jello but need to encourage diet, no nausea/vomitting, prakash d/c'd, UOP = 545mls this shift. Plan to move to PCU this shift Follow up:Continue to monitor for further AFib, encourage activity and diet
[2016-07-24 06:02] LABS: HEMATOCRIT 31.3 % (37.0-53.0); HEMOGLOBIN 10.3 g/dL (12.0-17.0); MCH 31.3 pg (27.0-34.0); MCHC 32.9 gm/dL (32.0-36.5); MCV 95.1 fl (83.0-98.0); MPV 9.8 fl (9.4-12.4); RBC 3.29 M/uL (4.00-6.00); WBC 13.3 K/uL (4.0-11.0)
--- NOTE | 2016-07-24 06:04 | NUR ---
Significant Event: Patient is alert/oriented x3. Vital signs stable. Continues on 1L O2. Dilaudid SPORTS EQUIPMENT REPAIRER at 0.2 mg demand dose, 0.1 mg continuous, and 10 min lockout. He had 45 demands and 35 delivered with a total of 8.04 mg received for this shift. Insulin drip infusing at 1 unit/hr. Mediastinal chest tubes had 70 mL out and pleural chest tubes had 60 mL out. Some slight crepitus to right upper chest region. Patient also receiving [place] for pain. IV Benadryl q.6hr PRN for itching, had 1 dose last night, with relief. Patient is compliant with sternal precautions. Not passing flatus yet but is belching and does have hypoactive bowel sounds. Did void last night. Follow up: Continue to monitor per plan of care.
[2016-07-24 06:22] LABS: ANION GAP 12.1 (10.0-19.0); CALCIUM 8.1 mg/dL (8.5-10.5); CREATININE 1.3 mg/dL (0.6-1.3); POTASSIUM 4.1 mMol/L (3.7-5.1)
--- NOTE | 2016-07-24 17:50 | NUR ---
PATIENT HAS BEEN UP IN CHAIR MOST OF DAY. HE HAS RESTED. HE ASKED FOR IV PAIN MEDICINE TO BE STOPPED. HE WALKED IN YANES 2 CHEST TUBES DC'D AND 2 MEDIASTINAL STILL REMAIN AND ARE CONNECTED TO BRYANT DRAINS. IVS ARE SL'D.
--- NOTE | 2016-07-25 04:58 | NUR ---
Significant event: A/O x 3. Up in room and hallway with minimal assist. [place] given every 4 hours with releif noted each time. rested well throughout the night and was abole to wean him down do room air. Two RODNEY drain's Intact with the left drain having out 40ml and the right drain having out 70ml.
--- NOTE | 2016-07-25 10:08 | NUR ---
0855 Made referral to Giselle with [employer] to let her know that Patrice was a self pay and see if she could visit with him about possible disability questions or resources she might be able to offer him. She states she will see what she can do. CM to continue to follow and assist.
--- NOTE | 2016-07-25 12:06 | NUR ---
A - PT SCREENED D/T LOS. S/P CABG. DECREASED APPETITE. HT: 74" WT: 195# BMI: 24.4. LABS: ACCUCHECK WNL-REAS, ALB 3.0, PREALB 21, A1C 5.8, WBC 13.3. MEDS: SSI, PEPCID, KCL, LASIX, BOWEL/NAUSEA. DIET: CARDIAC, 2000 ML FLUID. INTAKE: REF-100%. EST NEEDS: 6572-1154 KCAL (25-30 KCAL/KG), 89-106 G PRO (1-1.2 G/KG), 2000 ML FLUID (PER MD). D - INADEQUATE NUTRIENT INTAKE R/T DECREASED APPETITE S/P CABG AEB INTAKE RECORD. I - GOAL FOR INTAKE 50-100% BY NEXT ASSESSMENT. WILL ADD ENSURE BID TO INC NUTRIENT INTAKE. M/E - WILL MONITOR INTAKE F/U IN 3-5 DAYS.
--- NOTE | 2016-07-25 17:01 | NUR ---
A/Ox3. Ambulated in room and halls with minimal assist. VSS on RA. Crepitus present on L upper chest. Pleural RODNEY x1 in place with 120ml out. 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 ACHS accuchecks. Voiding well per urinal with adequate UOP. BM today after prune juice and milk of mag given. [place] q4h for pain with relief noted. IV to L anterior FA SL and slightly sluggish. IV to L AC SL and flushes well. Gauze placed to bottom of sternal incision d/t slight bloody drainage, sight remains approximated. K pad applied to back for pain.
--- NOTE | 2016-07-25 17:15 | NUR ---
I HAVE REVIEWED THE CHARTING OF SN VICKI AND I AGREE WITH IT.
--- NOTE | 2016-07-26 04:36 | NUR ---
Significant events: Pt A/Ox3. VSS. Up SBA. Noroc x1 for pain. Sternum open to air, gauze to lower part for oozing. RODNEY x1 to R) lower stomach with 40mL out. Slept most of shift.
[2016-07-26 05:45] LABS: BASOPHIL % 0.4 %; EOSINOPHIL # 0.3 K/uL (0.0-0.5); EOSINOPHIL % 3.7 %; HEMATOCRIT 30.9 % (37.0-53.0); HEMOGLOBIN 10.2 g/dL (12.0-17.0); IMMATURE GRANULOCYTE # 0.1 K/uL (0.0-0.3); IMMATURE GRANULOCYTE % 0.7 %; LYMPHOCYTE # 0.9 K/uL (0.8-4.0); LYMPHOCYTE % 10.5 %; MCH 30.6 pg (27.0-34.0); MCV 92.8 fl (83.0-98.0); MONOCYTE # 0.7 K/uL (0.0-1.0); MONOCYTE % 8.2 %; MPV 9.3 fl (9.4-12.4); NEUTROPHIL # (ANC) 6.8 K/uL (1.4-9.0); NEUTROPHIL % 76.5 %; NRBC % 0 /100WBC (0-0.00); RBC 3.33 M/uL (4.00-6.00); RDW-CV 13.6 % (11.9-14.6); WBC 8.9 K/uL (4.0-11.0)
[2016-07-26 05:47] LABS: PLATELET COUNT 225 K/uL (150-450)
[2016-07-26 06:02] LABS: ALBUMIN 2.6 gm/dL (3.5-5.0); ANION GAP 11.2 (10.0-19.0); BLOOD UREA NITROGEN 17 mg/dL (6-24); CALCIUM 8.2 mg/dL (8.5-10.5); CHLORIDE 104 mMol/L (96-110); CO2 27 mMol/L (22-32); ESTIMATED GFR (MDRD EQUATION) > 60; MAGNESIUM 2.2 mg/dL (1.8-2.6); POTASSIUM 4.2 mMol/L (3.7-5.1); SODIUM 138 mMol/L (135-145)
[2016-07-26 06:04] LABS: PHOSPHORUS 1.6 mg/dL (2.5-4.9)
--- NOTE | 2016-07-26 16:29 | NUR ---
Significant Event: A/OX3, VSS ON ROOM AIR. 1 TAB OF NORCO GIVEN X2 LAST AT 1428 FOR PAIN. PT. GETS UP SELF IN ROOM. LAST RODNEY DRAIN PULLED TODAY, DRESSING TO SITE IS C/D/I. DR. MYERS PUT GAUZE TO BOTTOM OF CHEST INCISION, SCANT DRAINAGE NOTED TO SITE. CHEST INCISION CLOSED. SUTURES TO R)LEG HARVEST SITES ARE INTACT, NO DRAINAGE. HERE TODAY. SLIV TO L)FA. Follow up: D/C TO HOME IN AM.
--- NOTE | 2016-07-27 04:19 | NUR ---
Signficant events: Pt A/Ox3. VSS. Up ad jean in room. [place] x1 at HS. Sternal incision open to air with gauze to the bottom, shadow drainage noted. CT sites covered. Slept in recliner. DC home today.
[2016-07-27 04:43] LABS: BASOPHIL # 0.1 K/uL (0.0-0.2); BASOPHIL % 0.6 %; EOSINOPHIL # 0.5 K/uL (0.0-0.5); EOSINOPHIL % 6.2 %; HEMATOCRIT 32.7 % (37.0-53.0); HEMOGLOBIN 10.7 g/dL (12.0-17.0); IMMATURE GRANULOCYTE # 0.1 K/uL (0.0-0.3); IMMATURE GRANULOCYTE % 1.6 %; LYMPHOCYTE # 1.1 K/uL (0.8-4.0); LYMPHOCYTE % 12.9 %; MCH 30.5 pg (27.0-34.0); MCHC 32.7 gm/dL (32.0-36.5); MCV 93.2 fl (83.0-98.0); MONOCYTE # 0.9 K/uL (0.0-1.0); MPV 9.3 fl (9.4-12.4); NEUTROPHIL # (ANC) 5.6 K/uL (1.4-9.0); NEUTROPHIL % 67.7 %; NRBC % 0 /100WBC (0-0.00); RBC 3.51 M/uL (4.00-6.00); RDW-CV 13.7 % (11.9-14.6); WBC 8.3 K/uL (4.0-11.0)
[2016-07-27 04:47] LABS: PLATELET COUNT 301 K/uL (150-450)
[2016-07-27 04:58] LABS: ALBUMIN 2.5 gm/dL (3.5-5.0); ANION GAP 12.4 (10.0-19.0); BLOOD UREA NITROGEN 16 mg/dL (6-24); CALCIUM 8.5 mg/dL (8.5-10.5); CHLORIDE 105 mMol/L (96-110); CO2 27 mMol/L (22-32); CREATININE 0.9 mg/dL (0.6-1.3); ESTIMATED GFR (MDRD EQUATION) > 60; PHOSPHORUS 2.7 mg/dL (2.5-4.9); POTASSIUM 4.4 mMol/L (3.7-5.1); SODIUM 140 mMol/L (135-145)
[2016-07-27] MEDS ORDERED: NORCO 5-325 TA1 EACH PO (10:53)
[2016-07-27] MEDS ORDERED: CORDARONE,PACE200 MG PO (10:56)
[2016-07-27] MEDS ORDERED: ASPIRIN LO-DOSE81 MG PO (10:57)
[2016-07-27] MEDS ORDERED: LIPITOR40 MG PO (10:59)
[2016-07-27] MEDS ORDERED: COREG 3.1253.125 MG PO (11:00)
[2016-07-27] MEDS ORDERED: PLAVIX75 MG PO (11:01)
[2016-07-27] MEDS ORDERED: COLACE100 MG PO (11:02)
[2016-07-27] MEDS ORDERED: VASOTEC2.5 MG PO (11:03)
[2016-07-27] MEDS ORDERED: LASIX40 MG PO (11:05)
[2016-07-27] MEDS ORDERED: MUCINEX600 MG PO (11:06)
[2016-07-27] MEDS ORDERED: K-TAB 10MEQ10 MEQ PO (11:07)
[2016-07-27] MEDS ORDERED: NICODERM / HABIT7 MG TRANS (11:10)
--- NOTE | 2016-07-27 13:23 | NUR ---
PATIENT IS A/OX3, VSS ON ROOM AIR. CHEST INCISION, CHEST TUBES SITES ARE ALL OPEN TO AIR, RIGHT LEG HARVEST SITES X2 HAVE SUTURES INTACT, SCANT AMOUNT OF DRAINAGE NOTED TO BOTTOM OF CHEST INCISION, ALL OTHER SITES ARE CLOSED, NO DRAINAGE NOTED, SWELLING. PT. GETS UP SELF IN ROOM, FOLLOWS HEART PRECAUTIONS. NEW MEDICATIONS GONE OVER WITH PATIENT & FROM PHARMACIST HELENA. NEW MEDICAITONS, DISMISSAL INSTRUCTIONS, POST CABG INSTRUCTIONS GONE OVER WITH PATIENT AND , NO FURTHER QUESTIONS AT THIS TIME. IV TO LEFT FOREARM REMOVED WITHOUT DIFFICULTLY. ALL BELONGINGS SENT HOME WITH PATIENT.
== END 2016-07-27 12:25 | disposition disaster alternative care site (69) | DRG 233 ==
LOC: GPCU 22:43 → GICU 07-22 08:03 → GPCU 07-23 17:48
PROVIDERS: Internal Medicine Interventional Cardiology; Nurse Practitioner Women's Health; Thoracic Surgery (Cardiothoracic Vascular Surgery); ADMIT Internal Medicine
PROC: B2111ZZ Fluoroscopy of Multiple Coronary Arteries using Low Osmolar Contrast (ICD-10-PCS; 2016-07-21)
PROC: 4A023N7 Measurement of Cardiac Sampling and Pressure, Left Heart, Percutaneous Approach (ICD-10-PCS; 2016-07-21)
PROC: 02HV33Z Insertion of Infusion Device into Superior Vena Cava, Percutaneous Approach (ICD-10-PCS; principal; 2016-07-22)
PROC: 02100A8 Bypass Coronary Artery, One Artery from Right Internal Mammary with Autologous Arterial Tissue, Open Approach (ICD-10-PCS; principal; 2016-07-22)
PROC: 5A1221Z Performance of Cardiac Output, Continuous (ICD-10-PCS; principal; 2016-07-22)
PROC: 02100A9 Bypass Coronary Artery, One Artery from Left Internal Mammary with Autologous Arterial Tissue, Open Approach (ICD-10-PCS; principal; 2016-07-22)
PROC: 06BP4ZZ Excision of Right Saphenous Vein, Percutaneous Endoscopic Approach (ICD-10-PCS; principal; 2016-07-22)
PROC: B24BZZ4 Ultrasonography of Heart with Aorta, Transesophageal (ICD-10-PCS; principal; 2016-07-22)
PROC: 02HP32Z Insertion of Monitoring Device into Pulmonary Trunk, Percutaneous Approach (ICD-10-PCS; principal; 2016-07-22)
PROC: 021009W Bypass Coronary Artery, One Artery from Aorta with Autologous Venous Tissue, Open Approach (ICD-10-PCS; principal; 2016-07-22)
DX: I21.09 ST elevation (STEMI) myocardial infarction involving other coronary artery of anterior wall (principal); I50.21 Acute systolic (congestive) heart failure; I48.91 Unspecified atrial fibrillation; I25.10 Atherosclerotic heart disease of native coronary artery without angina pectoris; K21.9 Gastro-esophageal reflux disease without esophagitis; F17.210 Nicotine dependence, cigarettes, uncomplicated; M19.90 Unspecified osteoarthritis, unspecified site; Z82.49 Family history of ischemic heart disease and other diseases of the circulatory system; I25.5 Ischemic cardiomyopathy; R73.9 Hyperglycemia, unspecified; E78.5 Hyperlipidemia, unspecified
CPT/HCPCS: C1769; C1887; G0009; J0282; J0583; J0690; J1170; J1200; J1644; J1885; J1940; J2060; J2150; J2250; J2270; J2370; J2440; J2720; J3010; J3475; J3480; J3490; J7030; J7060; J7121; P9045; P9047

== ENCOUNTER → 2016-08-11 | Outpatient (CLI) | payer SELFPAY ==
[~2016-08-11] MED LIST: ASPIRIN LO-DOSE81 MG PO; COLACE100 MG PO; CORDARONE,PACE200 MG PO; COREG 3.1253.125 MG PO; IBUPROFEN800 MG PO; K-TAB 10MEQ10 MEQ PO; LASIX40 MG PO; LIPITOR40 MG PO; MUCINEX600 MG PO; NEXIUM40 MG PO; NICODERM / HABIT7 MG TRANS; NORCO 5-325 TA1 EACH PO; PLAVIX75 MG PO; VASOTEC2.5 MG PO
[2016-08-11 16:39] LABS: BASOPHIL # 0.1 K/uL (0.0-0.2); BASOPHIL % 0.9 %; EOSINOPHIL # 0.5 K/uL (0.0-0.5); EOSINOPHIL % 6.2 %; HEMATOCRIT 28.1 % (37.0-53.0); HEMOGLOBIN 8.9 g/dL (12.0-17.0); IMMATURE GRANULOCYTE % 0.4 %; LYMPHOCYTE # 1.5 K/uL (0.8-4.0); MCH 29.9 pg (27.0-34.0); MCHC 31.7 gm/dL (32.0-36.5); MCV 94.3 fl (83.0-98.0); MONOCYTE # 0.7 K/uL (0.0-1.0); MONOCYTE % 8.9 %; MPV 9.1 fl (9.4-12.4); NEUTROPHIL # (ANC) 5.2 K/uL (1.4-9.0); NEUTROPHIL % 64.6 %; NRBC % 0 /100WBC (0-0.00); RBC 2.98 M/uL (4.00-6.00); RDW-CV 13.3 % (11.9-14.6)
[2016-08-11 16:40] LABS: PLATELET COUNT 498 K/uL (150-450)
[2016-08-11 16:56] LABS: ALBUMIN 3.4 gm/dL (3.5-5.0); ALK PHOS 86 IU/L (33-138); ALT 61 IU/L (12-78); ANION GAP 11.3 (10.0-19.0); AST 20 IU/L (10-40); BLOOD UREA NITROGEN 28 mg/dL (6-24); CALCIUM 8.8 mg/dL (8.5-10.5); CHLORIDE 106 mMol/L (96-110); CO2 28 mMol/L (22-32); CREATININE 1.1 mg/dL (0.6-1.3); ESTIMATED GFR (MDRD EQUATION) > 60; POTASSIUM 4.3 mMol/L (3.7-5.1); SODIUM 141 mMol/L (135-145); TOTAL BILIRUBIN 0.1 mg/dL (0.0-1.5); TOTAL PROTEIN 7.3 g/dL (6.0-8.4)
== END ==
LOC: LNHI 16:35
PROVIDERS: Nurse Practitioner Women's Health
DX: R53.83 Other fatigue (principal); I25.10 Atherosclerotic heart disease of native coronary artery without angina pectoris